=== PATIENT | male | born 1935 | race Caucasian/White ===

== ENCOUNTER → 2020-01-13 | Outpatient (REF) | payer MEDICARE ==
[2020-01-14 13:56] LABS: CREATININE,RANDOM URINE 19.4 MG/DL; TOTAL PROTEIN,RANDOM URINE 57.3 MG/DL (0.0-12.0)
[2020-01-14 14:04] LABS: TOTAL PROTEIN 7.3 GM/DL (6.4-8.2)
[2020-01-16 09:01] LABS: ALBUMIN 4.07 GM/DL (3.29-5.55); ALBUMIN % 55.7 % (55.8-66.1); ALPHA-1-GLOBULIN % 3.9 % (2.9-4.9); ALPHA-1-GLOBULINS 0.28 GM/DL (0.17-0.41); ALPHA-2-GLOBULINS 0.59 GM/DL (0.42-0.99); ALPHA-2-GLOBULINS % 8.1 % (7.1-11.8); BETA-1-GLOBULINS % 5.5 % (4.7-7.2); BETA-2-GLOBULINS 0.26 GM/DL (0.19-0.55); BETA-2-GLOBULINS % 3.5 % (3.2-6.5); GAMMA GLOBULIN % 23.3 % (11.1-18.8)
[2020-01-16 09:53] LABS: IMMUNOTYPING SERUM IGG ABNORMAL (NORMAL); IMMUNOTYPING SERUM LAMBDA ABNORMAL (NORMAL)
[2020-01-18 10:13] LABS: ANCA-ATYPICAL <1:20 titer (Neg:<1:20); ANTI DS-DNA AB Negative (Negative); ANTINUCLEAR ANTIBODIES DIRECT Negative (Negative); CREATININE RANDOM URINE 20.9 mg/dL (Not Estab.); CYTOPLASMIC NEUTROP AB ANCA-C <1:20 titer (Neg:<1:20); FREE KAPPA LIGHT CHAINS SERUM 46.2 mg/L (3.3-19.4); FREE LAMBDA LIGHT CHAINS SERUM 35.1 mg/L (5.7-26.3); KAPPA/LAMBDA RATIO SERUM 1.32 (0.26-1.65); METANEPHRINE PLASMA 68 pg/mL (0-62); NORMETANEPHRINE PLASMA 167 pg/mL (0-145); PERINUCLEAR AB ANCA-P <1:20 titer (Neg:<1:20); VANILLYLMANDELIC ACID,URINE 0.7 mg/L (Undefined); VMA CREAT RATIO RANDOM UR 3.3 mg/g Creat (0.0-6.0)
== END ==
LOC: M LAB REF 12:44
PROVIDERS: ATTEND Internal Medicine Nephrology
DX: I12.9 Hypertensive chronic kidney disease with stage 1 through stage 4 chronic kidney disease, or unspecified chronic kidney disease (principal); R80.9 Proteinuria, unspecified

== ENCOUNTER → 2023-01-11 | Outpatient (REF) | payer MEDICARE | LOC: M LAB REF 17:04 | PROVIDERS: ATTEND Surgery | DX: C43.59 Malignant melanoma of other part of trunk (principal) ==